=== PATIENT | female | born 1970 ===

== ENCOUNTER 2018-07-14 21:03 | Emergency (ER) | payer OTHER, SELFPAY ==
[2018-07-14 21:52] LABS: BASO % 0.4 % (0.0-2.0); EOS # 0.1 K/uL (0.0-0.7); EOS % 0.9 % (0.0-4.0); HEMOGLOBIN 13.2 g/dL (12.0-16.0); LYMPH # 1.9 K/uL (1.0-4.3); LYMPH % 20.5 % (20.0-40.0); MEAN CELL VOLUME 88.3 fl (81.0-99.0); MEAN CORPUSCULAR HEMOGLOBIN 29.4 pg (27.0-31.0); MEAN CORPUSCULAR HGB CONC 33.4 g/dL (33.0-37.0); MEAN PLATELET VOLUME 7.6 fl (7.2-11.7); MONO # 0.4 K/uL (0.0-0.8); MONO % 4.6 % (0.0-10.0); NEUT # 6.7 K/uL (1.8-7.0); NEUT % 73.6 % (50.0-75.0); RBC 4.47 Mil/uL (3.80-5.20); RED CELL DISTRIBUTION WIDTH 13.5 % (11.5-14.5); WHITE BLOOD COUNT 9.1 K/uL (4.8-10.8)
[2018-07-14 21:59] LABS: PROTHROMBIN TIME 11.9 Seconds (9.8-13.1)
[2018-07-14 22:01] LABS: SQUAMOUS EPITHIAL 1 /hpf (0-5); URINE BACTERIA RARE (<OCC); URINE BILIRUBIN NEGATIVE (NEGATIVE); URINE BLOOD SMALL (NEGATIVE); URINE CALCIUM OXALATE CRYSTALS MOD /hpf (<OCC); URINE CLARITY CLOUDY (Clear); URINE COLOR YELLOW (YELLOW); URINE GLUCOSE (UA) NEG (NEGATIVE); URINE LEUKOCYTE ESTERASE NEG Leu/uL (Negative); URINE PROTEIN 30 mg/dL (NEGATIVE)
[2018-07-14 22:02] LABS: PARTIAL THROMBOPLASTIN TIME 27.8 Seconds (25.6-37.1)
[2018-07-14 22:07] LABS: ALB/GLOB RATIO 1.4 (1.0-2.1); ALBUMIN 4.4 g/dL (3.5-5.0); ALT/SGPT 253 U/L (9-52); AST/SGOT 269 U/L (14-36); BLOOD UREA NITROGEN 13 mg/dl (7-17); CALCIUM 8.7 mg/dL (8.4-10.2); GFR NON-AFRICAN AMERICAN > 60; LIPASE 141 U/L (23-300)
--- NOTE | 2018-07-14 22:14 | ED PDOC ---
HPI: Chest Pain Time Seen by Provider: 07/14/18 21:22 Chief Complaint (Nursing): Chest Pain Chief Complaint (Provider): chest pain History Per: Patient, [employer] Cutting Machine Operator (Ulices Coronado) History/Exam Limitations: no limitations Onset/Duration Of Symptoms: Intermittent Episodes Current Symptoms Are (Timing): Still Present Severity: Mild Quality: Tightness Associated Symptoms: denies: Nausea, Dyspnea, Diaphoresis, Syncope Modifying Factors: Other Indicated Below Exacerbating Factors: None, Deep Breathing Additional Complaint(s): 48yo female presents c/o substernal chest pain radiating to the back ongoing intermittently for 3-4 months now more persistent over last 3 days. Denies nausea, vomiting, diarrhea, dizziness or syncope. Denies shortness or breath, jaw pain, shoulder pain, neck pain or headache. Takes advil which relieves pain usually. Deep breath will exacerbate symptoms but denies any change with eating or exertion. Past Medical History Reviewed: Historical Data, Nursing Documentation, Vital Signs Vital Signs: Last Vital Signs Temp 98.1 F 07/14/18 21:11 Pulse 59 L 07/14/18 21:28 Resp 16 07/14/18 21:11 BP 145/64 07/14/18 21:11 Pulse Ox 100 07/14/18 21:11 - Medical History PMH: No Chronic Diseases - Surgical History Surgical History: No Surg Hx - Family History Family History: States: Unknown Family Hx - Living Arrangements Living Arrangements: With Family - Social History Current smoker - smoking cessation education provided: No - Allergies Allergies/Adverse Reactions: Allergies Allergy/AdvReac Type Severity Reaction Status Date / Time No Known Allergies Allergy Verified 07/14/18 21:12 MARISA Risk Score for UA/NSTEMI - MARISA Risk Score Age > 64: NO 3 or more CAD Risk Factors: NO Known CAD (Stenosis greater than 50%): NO Aspirin use in past 7 days: NO Severe Angina: NO EKG ST changes greater than 0.5mm: NO Positive Cardiac Marker: NO MARISA Score: 0 Risk %: 5% Physical Exam - Reviewed Nursing Documentation Reviewed: Yes Vital Signs Reviewed: Yes - Physical Exam Appears: Positive for: Well, Non-toxic, No Acute Distress Head Exam: Positive for: ATRAUMATIC, NORMAL INSPECTION, NORMOCEPHALIC Skin: Positive for: Normal Color, Warm, DRY Eye Exam: Positive for: EOMI, Normal appearance, PERRL ENT: Positive for: Normal ENT Inspection Neck: Positive for: Normal, Painless ROM Cardiovascular/Chest: Positive for: Regular Rate, Rhythm. Negative for: Chest Non Tender (+ chest wall tenderness on palpation of lower sternum), Tachycardia, Irregularly Irregular Respiratory: Positive for: CNT, Normal Breath Sounds Pulses-Radial (L): 3+/4+ Pulses-Radial (R): 3+/4+ Gastrointestinal/Abdominal: Positive for: Soft. Negative for: Tenderness, Guarding Back: Positive for: Normal Inspection. Negative for: L CVA Tenderness, R CVA Tenderness Extremity: Positive for: Normal ROM Neurologic/Psych: Positive for: Alert, Oriented. Negative for: Motor/Sensory Deficits, Aphasia - Laboratory Results Result Diagrams: 07/14/18 21:48 07/14/18 21:48 Urine POC: Negative Urine dip results: Positive for: Blood (small) - ECG ECG: Positive for: Interpreted By Me ECG Rhythm: Positive for: Normal QRS, Sinus Bradycardia. Negative for: ST/T Changes Rate: 55 O2 Sat by Pulse Oximetry: 100 Pulse Ox Interpretation: Normal - Radiology X-Ray: Interpreted by Me X-Ray Interpretation: No Acute Disease Medical Decision Making Medical Decision Making: HEART SCORE 1 will check labs, CXR, monitoring coordinator and re-eval Pt took advil prior to arrival w improvement of pain\ labs reviewed reveal elev transaminases and elev DDimer WBC normal/ trop neg/ [employer] Supervisor normal Check US RUQ and CTA chest endorsed Dr resendez Disposition - Clinical Impression Clinical Impression: Chest pain, Elevated liver enzymes - Patient ED Disposition Is Patient to be Admitted: Transfer of Care Counseled Patient/Family Regarding: Studies Performed - Disposition Disposition: Transfer of Care Disposition Time: 22:23 Condition: STABLE Forms: [employer] (Croatian) Patient Signed Over To: Chris Resendez
[2018-07-14 22:16] VITALS: PULSE 55
[2018-07-14] MEDS ORDERED: Iodixanol 320 MG/ML 100 ML BOTTLE IV ONE (22:41)
[2018-07-14] MEDS ORDERED: Sodium Chloride 0.9% 50 ML IV ONE (22:42)
--- NOTE | 2018-07-14 23:10 | ED PDOC ---
- Laboratory Results Result Diagrams: 07/14/18 21:48 07/14/18 21:48 Urine POC: Negative - ECG O2 Sat by Pulse Oximetry: 100 (RA) Pulse Ox Interpretation: Normal - Progress Re-evaluation Time: 01:00 Condition: Re-examined, Improved Medical Decision Making Medical Decision Making: Time: 23:00 Patient care endorsed from Dr. Rivera to me pending US and CTA Chest. 23:19 CTA Chest FINDINGS: PULMONARY ARTERIES No evidence of central or segmental pulmonary embolism is seen. AORTA There is no evidence for aneurysm or dissection of the thoracic aorta. LUNGS The lungs appear clear. PLEURAL SPACES No pleural effusion seen. No pneumothorax evident. HEART Heart size is within normal limits. No significant pericardial effusion. LYMPH NODES No lymphadenopathy is evident. BONES No focal osseous abnormality or acute fracture. UPPER ABDOMEN Images of the upper abdomen demonstrate 1.5 cm peripherally calcified gallstone. IMPRESSION: Unremarkable pulmonary embolism protocol CTA of the chest. 00:57 US Abd FINDINGS: LIVER: Within normal limits in size and echogenicity. No mass. GALLBLADDER: Gallbladder is contracted and contains several gallstones. COMMON BILE DUCT: Within normal limits in size. PANCREAS: The visualized pancreas appears within normal limits. The distal pancreas is obscured by bowel gas. RIGHT KIDNEY: Unremarkable. 10.4 cm. Normal renal contours. No renal mass or calculus. No hydronephrosis. IMPRESSION: Gallbladder is contracted and contains several gallstones. 01:15 Patient reports significant improvement in symptoms. Labs reviewed and were normal. CT reviewed and was unremarkable. US shows gallstones. Patient is stable for discharge. Scribe Attestation: Documented by Eduadro Barrera acting as a scribe for Chris Resendez MD. Provider Scribe Attestation: All medical record entries made by the Scribe were at my direction and persona lly dictated by me. I have reviewed the chart and agree that the record accurately reflects my personal performance of the history, physical exam, medical decision making, and the department course for this patient. I have also personally directed, reviewed, and agree with the discharge instructions and disposition. Disposition - Clinical Impression Clinical Impression: Chest pain, Elevated liver enzymes, Gallstones - POA Present On Arrival: None - Disposition Referrals: [facility] [Outside] José Miguel Ferrara MD [Staff Provider] - Disposition: Routine/Home Disposition Time: 01:15 Condition: STABLE Additional Instructions: BRUNO BLANK, thank you for letting us take care of you today. Your provider was Chris Resendez MD and you were treated for CHEST PAIN. The emergency medical care you received today was directed at your acute symptoms. If you were prescribed any medication, please fill it and take as directed. It may take several days for your symptoms to resolve. Return to the Emergency Department if your symptoms worsen, do not improve, or if you have any other problems. Please contact your doctor or call one of the physicians/clinics you have been referred to that are listed on the Patient Visit Information form that is included in your discharge packet. Bring any paperwork you were given at discharge with you along with any medications you are taking to your follow up v isit. Our treatment cannot replace ongoing medical care by a primary care provider outside of the emergency department. Thank you for allowing the [facility] team to be part of your care today. If you had an X-Ray or CT scan: A Radiologist will review the ED reading if any change in treatment is needed we will contact you. If you had a blood, urine, or wound culture: It will take several days for the results, if any change in treatment is needed we will contact you. If you had an STI test: It will take 48 hours for the results. Please call after 1 week if you have not heard back. Prescriptions: Famotidine [Pepcid] 20 mg PO DAILY #14 tab traMADol [Ultram] 50 mg PO TID PRN #20 tab PRN Reason: Pain, Severe (8-10) Instructions: Gallstones, Chest Pain Forms: [employer] ([place]) Print Language: [place]ISH
[2018-07-15 01:18] VITALS: BP 101/60; RESP 14; TEMP 98.4
[2018-07-15 01:31] VITALS: O2SAT 100
--- NOTE | 2018-07-15 07:56 | CARD ---
APPROVED REPORT Date of service: 07/14/2018 EKG Measurement Heart [id number] <Conclusion> Sinus bradycardia Otherwise normal ECG
--- NOTE | 2018-07-15 09:27 | RAD ---
Date of service: 07/14/2018 HISTORY: chest pain x2 months COMPARISON: No prior. TECHNIQUE: Chest PA and lateral FINDINGS: LUNGS: No active pulmonary disease. PLEURA: No significant pleural effusion identified. No pneumothorax apparent. CARDIOVASCULAR: No aortic atherosclerotic calcification present. Normal cardiac size. No pulmonary vascular congestion. OSSEOUS STRUCTURES: No significant abnormalities. VISUALIZED UPPER ABDOMEN: Normal. OTHER FINDINGS: None. IMPRESSION: No active disease.
--- NOTE | 2018-07-15 10:20 | US ---
Date of service: 07/14/2018 HISTORY: chest pain elev LFTS, eval GB/liver/CBD COMPARISON: None. TECHNIQUE: Sonographic evaluation of the right upper quadrant of the abdomen. FINDINGS: LIVER: Measures 12.8 cm in length. Normal echogenicity of the liver parenchyma. No mass. No intrahepatic bile duct dilatation. GALLBLADDER: Cholelithiasis. Sludge. Thickened wall. Probable adenomyomatosis. Punctate nonmobile foci of echogenicity with some ring down artifact. Mural thickening up to 3 mm, nonspecific. No pericholecystic fluid. Negative sonographic Mathur sign. Findings equivocal for cholecystitis. COMMON BILE DUCT: Measures 5 mm. No stones. No dilatation. PANCREAS: Unremarkable as visualized. No mass. No ductal dilatation. RIGHT KIDNEY: Measures 10.2 cm in length. Normal echogenicity. No calculus, mass, or hydronephrosis. AORTA: No aneurysmal dilatation. IVC: Unremarkable. OTHER FINDINGS: None . IMPRESSION: Cholelithiasis. Adenomyomatosis of the gallbladder. Mildly thickened gallbladder wall. Negative sonographic Mathur sign. Findings equivocal for cholecystitis. No evidence of biliary obstruction. No additional abnormality. The preliminary findings for this examination were reported by [facility] at 12:57 a.m. on 07/15/2018. There is concurrence of this report with the preliminary findings.
--- NOTE | 2018-07-15 12:44 | CT ---
Date of service: 07/14/2018 PROCEDURE: CT Chest with contrast (Pulmonary Angiogram) HISTORY: chest pain elevated dDimer COMPARISON: The knee for more hours TECHNIQUE: Axial computed tomography images were obtained of the chest in the pulmonary arterial phase of enhancement. Coronal and sagittal reformatted images were created and reviewed. Intravenous contrast dose: 85 cc Visipaque [id number]. Mean Hounsfield value in the main pulmonary artery: 433.82 Radiation dose: Total exam DLP = 268.85 mGy-cm. This CT exam was performed using one or more of the following dose reduction techniques: Automated exposure control, adjustment of the mA and/or kV according to patient size, and/or use of iterative reconstruction technique. FINDINGS: PULMONARY ARTERIES: Unremarkable. No pulmonary embolism. AORTA: No acute findings. No thoracic aortic aneurysm. No atherosclerotic calcification or mural plaque present. LUNGS: Unremarkable. No nodule, mass or pulmonary consolidation. Incidental finding(s): Calcified granuloma right lower lobe 2 mm. PLEURAL SPACES: Unremarkable. No effusion or pneumothorax. HEART: Unremarkable. No cardiomegaly. No significant pericardial effusion. LYMPH NODES: No lymphadenopathy. BONES, CHEST WALL: Unremarkable. No fracture or destructive lesion OTHER FINDINGS: Cholelithiasis without CT evidence of acute cholecystitis. IMPRESSION: Unremarkable CT pulmonary angiogram. No pulmonary embolus. Additional benign and/or incidental findings described above. Concordant results (preliminary interpretation) provided by [facility]. Procedure Completed: 23:02. Preliminary Report: Dictated and Authenticated: 23:19. Final Interpretation: 12:40. July 15, 2018
== END 2018-07-15 01:55 | disposition home or self-care (01) ==
LOC: H.ER 21:03
DX: R07.89 Other chest pain (principal); K80.20 Calculus of gallbladder without cholecystitis without obstruction; R94.5 Abnormal results of liver function studies
CPT/HCPCS: 71046; 71275; 76705; 80053; 81003; 81025; 83690; 84484; 85025; 85378; 85610; 85730; 93005; 99285; Q9967